=== PATIENT | female | born 2000 | race Caucasian/White ===

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

== ENCOUNTER → 2019-03-04 12:31 | Outpatient (CLI) | payer MEDICAID, SELFPAY | PROVIDERS: Visit Provider Internal Medicine Cardiovascular Disease | DX: G47.9 Sleep disorder, unspecified (principal); R00.2 Palpitations; R06.09 Other forms of dyspnea; R07.9 Chest pain, unspecified; R40.0 Somnolence | CPT/HCPCS: 95806 ==

== ENCOUNTER → 2019-04-15 14:44 | Outpatient (CLI) | payer MEDICAID, SELFPAY ==
[2019-04-15 16:41] LABS: HCG,Quantitative 1 mIU/mL
== END ==
PROVIDERS: Visit Provider Nurse Practitioner Obstetrics & Gynecology
DX: Z32.00 Encounter for pregnancy test, result unknown (principal)
CPT/HCPCS: 36415; 84702

== ENCOUNTER → 2019-04-19 17:42 | Outpatient (CLI) | payer MEDICAID, SELFPAY ==
[2019-04-24 17:19] LABS: Neisseria gonorrhoeae, NAA Negative (Negative)
== END ==
PROVIDERS: Visit Provider Nurse Practitioner Obstetrics & Gynecology
DX: Z34.90 Encounter for supervision of normal pregnancy, unspecified, unspecified trimester (principal)
CPT/HCPCS: 87491; 87591

== ENCOUNTER → 2019-06-14 15:29 | Outpatient (CLI) | payer MEDICAID, SELFPAY ==
--- NOTE | 2019-06-14 15:32 | US_ITS ---
US transvaginal HISTORY: ITS.REASON: US T/V- Pain during intercourse ORDERING PHYSICIAN: Juan Luis Castro MD PATIENT AGE: 18 years Comparison: None FINDINGS: The uterus is 7 x 3 x 4 cm with a combined endometrial thickness of 3 mm. No uterine mass is evident. The left ovary is 4 x 3 cm and contains a 1.8 x 1.4 cm cyst. The right ovary is 2.8 x 1.3 cm and contains a few small follicles. No cul-de-sac fluid is evident. IMPRESSION: Small left ovarian cyst 1.8 cm otherwise negative
== END ==
PROVIDERS: PCP Nurse Practitioner; Visit Provider Nurse Practitioner Obstetrics & Gynecology
DX: N94.10 Unspecified dyspareunia (principal)
CPT/HCPCS: 76830

== ENCOUNTER → 2019-07-11 16:48 | Outpatient (CLI) | payer MEDICAID, SELFPAY | PROVIDERS: Visit Provider Nurse Practitioner Obstetrics & Gynecology | DX: N93.9 Abnormal uterine and vaginal bleeding, unspecified (principal) | CPT/HCPCS: 87086 ==

== ENCOUNTER → 2019-10-24 16:34 | Outpatient (CLI) | payer OTHER, SELFPAY ==
[2019-10-27 21:15] LABS: Neisseria gonorrhoeae, NAA Negative (Negative)
== END ==
PROVIDERS: Visit Provider Nurse Practitioner Obstetrics & Gynecology
DX: N94.10 Unspecified dyspareunia (principal)
CPT/HCPCS: 87491; 87591

== ENCOUNTER → 2019-10-28 09:43 | Outpatient (CLI) | payer OTHER, SELFPAY ==
--- NOTE | 2019-10-28 09:49 | US_ITS ---
PROCEDURE: US TRANSVAGINAL CLINICAL INDICATION: US T/V- pelvic pain COMPARISON: TRANVAG US transvaginal from 06/14/2019 FINDINGS: The uterus is normal in size and shows homogeneous echogenicity. There is a small amount of fluid within the endometrial cavity likely representing some residual blood from prolonged uterine bleeding per patient history. The left ovary is normal in size. The dominant cyst seen on the previous exam May of this year is not seen, couple of tiny follicular cyst noted. The right ovary is normal in size with a couple small follicular cyst noted. The patient complained of some pain from the pressure of the ultrasound transducer during the exam. IMPRESSION: Small amount of fluid within the endometrial cavity, otherwise unremarkable exam Dictated by: Dr. Leonidas Peck MD 10/28/2019 10:[address] Leonidas Peck MD in [place] 10/28/2019 10:54
== END ==
PROVIDERS: PCP Nurse Practitioner; Visit Provider Nurse Practitioner Obstetrics & Gynecology
DX: R10.2 Pelvic and perineal pain (principal)
CPT/HCPCS: 76830

== ENCOUNTER → 2020-08-17 14:07 | Outpatient (CLI) | payer OTHER, SELFPAY ==
[2020-08-21 04:24] LABS: Neisseria gonorrhoeae, NAA Negative (Negative)
== END ==
PROVIDERS: Visit Provider Nurse Practitioner Obstetrics & Gynecology
DX: N93.9 Abnormal uterine and vaginal bleeding, unspecified (principal); Z72.51 High risk heterosexual behavior
CPT/HCPCS: 87491; 87591

== ENCOUNTER → 2020-08-24 10:54 | Outpatient (CLI) | payer OTHER, SELFPAY ==
--- NOTE | 2020-08-24 10:55 | US_ITS ---
PROCEDURE: US TRANSVAGINAL CLINICAL INDICATION: abnormal vaginal bleeding Abnormal vaginal bleeding, prolonged bleeding COMPARISON: US US TRANSVAGINAL from 10/28/2019 FINDINGS: UTERUS: 6cm x 4cmx 2cm with a combined endometrial thickness of 2.7mm LEFT OVARY: [id number] with a volume of 4.2ml. RIGHT OVARY: [id number] with a volume of 5ml. No pelvic mass or abnormal fluid collection. IMPRESSION: Negative pelvic ultrasound Dictated by: Ras Alcocer MD 08/24/2020 18:03 Ras Alcocer MD in [place] 08/24/2020 18:03
== END ==
PROVIDERS: PCP Nurse Practitioner; Visit Provider Nurse Practitioner Obstetrics & Gynecology
DX: N93.9 Abnormal uterine and vaginal bleeding, unspecified (principal)
CPT/HCPCS: 76830

== ENCOUNTER → 2021-05-13 18:07 | Outpatient (CLI) | payer OTHER, SELFPAY ==
[2021-05-16 18:06] LABS: Neisseria gonorrhoeae, NAA Negative (Negative)
== END ==
PROVIDERS: Visit Provider Nurse Practitioner Obstetrics & Gynecology
DX: Z72.51 High risk heterosexual behavior (principal)
CPT/HCPCS: 87491; 87591

== ENCOUNTER 2022-12-25 14:56 | Emergency (ER) | payer OTHER, SELFPAY ==
[2022-12-25 14:57] VITALS: BP 116/55; PULSE 99; RESP 18; TEMP 36.8; O2SAT 100; BMI 16.5
--- NOTE | 2022-12-25 15:21 | HMH.EDGENADL ---
Discharge Plan Disposition Patient Disposition: Home, Self-Care Prescriptions Prescriptions: No Action meloxicam 7.5 mg tablet 7.5 mg PO DAILY Qty: 30 4RF medroxyprogesterone [Depo-Provera] 150 mg/mL suspension 150 mg IM [id number] Qty: 1 3RF Referrals Follow up/Referrals: Ambrose Cantu APRN [Primary Care Provider] - See instructions Activity Restrictions/Add. 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 She apparently went to [place] emergency department and had a negative test at that time. Their pelvic exam was unremarkable and she was discharged home. She presents now and thinks that she has passed tissue in the bleeding. No fever chills pelvic pain. She is concerned that she may be having a miscarriage again Related Data Previous Rx's Medication Instructions Recorded medroxyprogesterone 150 mg/mL 150 mg IM [id number] #1 mL 12/09/21 intramuscular suspension (Depo-Provera) meloxicam 7.5 mg tablet 7.5 mg PO DAILY #30 tabs 05/13/22 Allergies Allergy/AdvReac Type Severity Reaction Status Date / Time topiramate [From Topamax] Allergy Severe stopped Verified 05/13/22 14:17 breathing guaifenesin [From Mucinex] Allergy Mild vomiting, Verified 05/13/22 14:17 and hives PFSH PFS Disclaimer: The information contained in this section may have been updated after the patient was seen, as this information can be updated by other users. Medical History (Updated 12/25/22 @ 16:46 by Shai Clark MD) Daytime somnolence Dyspnea Palpitations Restless sleeper Snoring Social History Smoking Status: Current every day smoker alcohol intake: never substance use type: denies use current occupational status: student Travel in the last 8 weeks: None ROS Obtained: Yes All systems reviewed & no additional complaints except as documented Constitutional Constitutional: Denies body ache, Denies chills and Denies weakness Eyes Eyes: Denies blurry vision ENT Ears, Nose, Mouth, and Throat: Denies dysphagia, Denies lip swelling and Denies vertigo Cardiovascular Cardiovascular: Denies dyspnea and Denies dyspnea on exertion Respiratory Respiratory: Denies shortness of breath, Denies dyspnea and Denies dyspnea on exertion Gastrointestinal Gastrointestingal: Denies diarrhea, dysphagia or vomiting Genitourinary Female Genitourinary: Denies urinary urgency Musculoskeletal Musculoskeletal: Denies arthralgias and Denies stiffness Integumentary/Breasts Skin/Breast: Denies redness and Denies rash Neurologic Neurologic: Denies confusion, Denies vertigo and Denies weakness Allergic/Immunologic Allergic/Immunologic: Denies lip swelling Physical Exam General General appearance: alert and in no apparent distress Eye Eye exam: Present PERRL and EOMI ENT ENT exam: Present normal exam and normal oropharynx Neck Neck exam: Present normal inspection Chest Chest inspection: Present symmetric chest wall rise Respiratory Respiratory exam: Present normal lung sounds bilaterally; Absent respiratory distress Cardiovascular Cardiovascular exam: Present regular rate and normal rhythm Abdominal Exam Abdominal exam: Present soft; Absent distention, tenderness, guarding, rebound, Townsend's sign or tenderness at McBurney's Point Back Exam Back exam: Present normal inspection Neurological Exam Neurological exam: Present alert and oriented X3 Psychiatric Psychiatric exa
[2022-12-25 15:54] LABS: Basophils % 0.5 % (0.1-2.0); Eosinophils # 0.1 K/mm3 (0.0-0.4); Eosinophils % 1.4 % (0.1-12.0); Hematocrit 41.7 % (37.0-47.0); Hemoglobin 13.2 g/dL (12.2-16.2); Lymphocytes # 3.1 K/mm3 (0.7-4.5); Lymphocytes % 44.6 % (10-50); Mean Corpuscular HGB Conc 31.7 g/dL (31.8-35.4); Mean Corpuscular Hemoglobin 29.3 pg (27.0-31.2); Mean Corpuscular Volume 92.6 fl (81-99); Mean Platelet Volume 7.7 fl (7.4-10.4); Monocytes # 0.3 K/mm3 (0.1-1.0); Monocytes % 4.2 % (1.7-9.3); Neutrophils # 3.4 K/mm3 (1.8-7.8); Neutrophils % 49.3 % (37.0-80.0); Platelet Count 290 K/mm3 (142-424); Red Cell Distribution Width 13.3 % (11.5-17.5)
[2022-12-25 16:00] VITALS: BP 106/48; PULSE 88; RESP 20; O2SAT 100
[2022-12-25 16:03] LABS: Alanine Aminotransferase 15 U/L (12-78); Albumin Level 4.4 g/dl (3.5-5.0); Albumin/Globulin Ratio 1.8 (1.1-1.8); Alkaline Phosphatase 61 U/L (38-126); Anion Gap 10.8 mEq/L (5-15); Aspartate Amino Transferase 22 U/L (14-36); Bilirubin,Total 0.6 mg/dl (0.2-1.3); Blood Urea Nitrogen 5 mg/dl (7-17); Calcium 8.8 mg/dl (8.4-10.2); Carbon Dioxide 24 mmol/L (22.0-30.0); Chloride 109 mmol/L (98-107); Creatinine Clearance Estimated 123 mL/min (50-200); Estimated Glomerular Filt Rate 124 ml/min (>60); GFR (African American) 150 ML/MIN (>60); Globulin 2.5 g/dL (1.3-3.2); Glucose 90 mg/dl (74-100); Potassium 3.8 mmoL/L (3.5-5.1); Sodium 140 mmol/L (136-145); Total Protein,Serum 6.9 g/dl (6.3-8.2)
[2022-12-25 16:31] LABS: HCG,Quantitative < 2 mIU/ml (0-5.42)
[2022-12-25 16:50] VITALS: BP 118/70; PULSE 75; RESP 17; TEMP 36.7; O2SAT 99
== END 2022-12-25 16:55 | disposition home or self-care (01) ==
PROVIDERS: Emergency Provider Emergency Medicine; PCP Nurse Practitioner
DX: N93.9 Abnormal uterine and vaginal bleeding, unspecified (principal); F17.210 Nicotine dependence, cigarettes, uncomplicated
CPT/HCPCS: 36415; 80053; 84702; 85025; 86900; 86901; 99284

== ENCOUNTER → 2022-12-31 11:01 | Outpatient (CLI) | payer OTHER, SELFPAY ==
--- NOTE | 2022-12-31 11:02 | US_ITS ---
FINAL REPORT CLINICAL HISTORY: pelvic pain COMPARISON: August 24, 2020 FINDINGS: Transvaginal sonographic images of the pelvis were obtained. The uterus measures 7.7 x 4.0 x 2.7 cm. The endometrium measures 4 mm, which is within normal limits. No uterine mass is identified. The right ovary measures 3.9 cm in length and left ovary measures 3.1 cm in length. Normal blood flow seen to the ovaries. There are small cysts or follicles in both ovaries. There is no evidence of free fluid. IMPRESSION: Small cysts or follicles in both ovaries. Reviewed, Interpreted and Dictated by Shashank Sen MD Transcribed by Jie Batres Authenticated and [facility]
== END ==
PROVIDERS: PCP Nurse Practitioner; Visit Provider Obstetrics & Gynecology
DX: N93.9 Abnormal uterine and vaginal bleeding, unspecified (principal); R10.2 Pelvic and perineal pain
CPT/HCPCS: 76830

== ENCOUNTER 2024-07-29 11:37 | Outpatient (CLI) | payer OTHER, SELFPAY ==
[2024-07-29 13:41] LABS: HCG,Quantitative 62 mIU/ml (0-5.42)
[2024-07-30 08:18] LABS: Progesterone 7.7 ng/mL (.)
== END 2024-07-29 23:59 | disposition home or self-care (01) ==
LOC: LAB 11:38
PROVIDERS: PCP Nurse Practitioner; Visit Provider Obstetrics & Gynecology
DX: N92.6 Irregular menstruation, unspecified (principal)
CPT/HCPCS: 36415; 84144; 84702

== ENCOUNTER 2024-08-02 16:25 | Outpatient (CLI) | payer OTHER, SELFPAY ==
[2024-08-02 17:53] LABS: HCG,Quantitative 395 mIU/ml (0-5.42)
== END 2024-08-02 23:59 | disposition home or self-care (01) ==
LOC: LAB 16:25
PROVIDERS: PCP Nurse Practitioner; Visit Provider Obstetrics & Gynecology
DX: Z34.90 Encounter for supervision of normal pregnancy, unspecified, unspecified trimester (principal)
CPT/HCPCS: 36415; 84702

== ENCOUNTER 2024-08-17 14:26 | Outpatient (CLI) | payer OTHER, SELFPAY ==
--- NOTE | 2024-08-17 14:26 | US_ITS ---
PROCEDURE: US OB <= 14 WEEKS FETUS CLINICAL INDICATION: viablity and dating, possible sab COMPARISON: US US TRANSVAGINAL from 12/31/2022 FINDINGS: Transvaginal sonographic images of the pelvis were obtained. Her last menstrual period is unknown. An intrauterine gestational sac is present with a pole with a crown-rump length of 0.42cm This correlates to a gestational age of 6weeks 1day. MELVIN 04/11/2025 heart tones are present with an FHR of 124bpm. Yolk sac is noted. The yolk sac measures 5.1 mm. There is an inferior area of subchorionic hemorrhage. This measures 3.2 cm x 2.7 cm x 0.6 cm. The right ovary is seen and appears normal. There are multiple small peripheral follicles The left ovary is seen and appears normal. There appears to be a corpus luteum in the left ovary measuring 1.5 cm. There is no fluid in the cul-de-sac. IMPRESSION: 1. Viable fetus within the uterine cavity. 2. Fetus measures 6 weeks 1 day and MELVIN will be 04/11/2025. 3. There is a moderate sized subchorionic hemorrhage. 4. Both ovaries are seen and appear normal. The left ovary has a corpus luteum. 5. No fluid in the cul-de-sac. Dictated by: Juan Luis Castro MD 08/18/2024 08:38 Juan Luis Castro MD in [place] 08/18/2024 08:38
== END 2024-08-17 23:59 | disposition home or self-care (01) ==
LOC: RAD 14:26
PROVIDERS: PCP Obstetrics & Gynecology; Visit Provider Obstetrics & Gynecology
DX: Z34.91 Encounter for supervision of normal pregnancy, unspecified, first trimester (principal); Z3A.01 Less than 8 weeks gestation of pregnancy
CPT/HCPCS: 76801

== ENCOUNTER 2024-08-17 15:06 | Outpatient (CLI) | payer OTHER, SELFPAY ==
[2024-08-17 16:55] LABS: HCG,Quantitative 32999 mIU/ml (0-5.42)
== END 2024-08-17 23:59 | disposition home or self-care (01) ==
LOC: LAB 15:07
PROVIDERS: PCP Nurse Practitioner; Visit Provider Obstetrics & Gynecology
DX: O03.9 Complete or unspecified spontaneous abortion without complication (principal)
CPT/HCPCS: 36415; 84702

== ENCOUNTER 2024-08-18 16:59 | Outpatient (CLI) | payer OTHER, SELFPAY | END 2024-08-18 23:59 | disposition home or self-care (01) | LOC: LAB.DROPOF 16:59 | PROVIDERS: PCP Obstetrics & Gynecology; Visit Provider Obstetrics & Gynecology | DX: Z34.81 Encounter for supervision of other normal pregnancy, first trimester (principal) | CPT/HCPCS: 87086 ==

== ENCOUNTER 2024-09-01 13:00 | Outpatient (CLI) | payer OTHER, SELFPAY ==
[2024-09-01 14:02] LABS: Basophils % 0.4 % (0.1-2.0); Eosinophils # 0.1 K/mm3 (0.0-0.4); Eosinophils % 1.7 % (0.1-12.0); Hematocrit 40.5 % (37.0-47.0); Hemoglobin 13.6 g/dL (12.2-16.2); Lymphocytes # 2.3 K/mm3 (0.7-4.5); Lymphocytes % 27.7 % (10-50); Mean Corpuscular HGB Conc 33.7 g/dL (31.8-35.4); Mean Corpuscular Hemoglobin 31.8 pg (27.0-31.2); Mean Corpuscular Volume 94.5 fl (81-99); Mean Platelet Volume 8.4 fl (7.4-10.4); Monocytes # 0.5 K/mm3 (0.1-1.0); Monocytes % 6.5 % (1.7-9.3); Neutrophils # 5.3 K/mm3 (1.8-7.8); Neutrophils % 63.7 % (37.0-80.0); Platelet Count 228 K/mm3 (142-424); Red Blood Count 4.28 M/mm3 (4.20-5.40); White Blood Count 8.3 K/mm3 (4.8-10.8)
[2024-09-02 09:22] LABS: HCV Ab Non Reactive (Non Reactive); Hepatitis B Surface Antigen Negative (Negative)
[2024-09-02 10:24] LABS: HIV Screen 4th Generation wRfx Non Reactive (Non Reactive); Rubella Antibodies, IgG 1.44 index (Immune >0.99)
[2024-09-02 11:19] LABS: Rapid Plasma Reagin Ab Titer Non Reactive titer (NonRea<1:1)
== END 2024-09-01 23:59 | disposition home or self-care (01) ==
LOC: LAB 13:01
PROVIDERS: PCP Nurse Practitioner; Visit Provider Obstetrics & Gynecology
DX: Z34.81 Encounter for supervision of other normal pregnancy, first trimester (principal); Z3A.01 Less than 8 weeks gestation of pregnancy
CPT/HCPCS: 36415; 85025; 86593; 86703; 86762; 86803; 86850; 87340; 87389; G0432

== ENCOUNTER 2024-11-29 09:44 | Outpatient (CLI) | payer OTHER, SELFPAY ==
--- NOTE | 2024-11-29 09:44 | US_ITS ---
PROCEDURE: US OB /MATERNAL DETAIL CLINICAL INDICATION: 20 week Anatomy Scan-US OB Complete COMPARISON: US US OB <= 14 WEEKS FETUS from 08/17/2024 FINDINGS: Transabdominal sonographic images of the pelvis were obtained. From her established due date she is 21 weeks 0 days. Single viable intrauterine gestation. Breech position. Placenta: Lateralplacenta grade 1. Placental Reyes is seen. There is an average amount of fluid. The cervix appears satisfactory. Closed and measuring 2.83 cm in length measured transvaginally. Complete survey performed and was unremarkable on the submitted images as in PACS. No discrete anomalies identified on survey imaging by technologist. Active fetus. Three-vessel cord with satisfactory umbilical cord insertion. 4- chamber heart noted. Situs, aortic arch, LVOT, RVOT, three-vessel view appear normal. Survey of brain & ventricles Unremarkable. Cerebellum, thalamus, choroid plexus, cisterna magna appear normal. Face and neck survey unremarkable. Profile, nasion, lips and nose appeared normal. Diaphragm and chest views unremarkable. Abdomen: Both kidneys noted and unremarkable. Stomach and bladder noted and satisfactory. Spine: Survey of the spine satisfactory with no anomalies identified nor imaged. Cervical, thoracic, lower spine appear normal. Lower spine was not well visualized due to position. Both arms and legs noted. Amniotic Fluid: Adequate. MVP 5.46 cm Measurements: Average ultrasound age 21weeks 4days. Estimated due date by ultrasound age 0504/07/2025. Estimated weight 452g BPD = 21weeks 1day HC = 21weeks 1day AC = 22weeks 5days FL = 21weeks 1day Growth Percentile= 85 Heart Rate = 147bpm Cerebellum = 21weeks 6days Humerus = 21weeks 6days HC/AC is 1.06 FL/BPD is 0.7 FL/AC is 0.2 IMPRESSION: 1. Viable fetus in the breech presentation with a lateral placenta grade 1. Placental Reyes is seen. 2. The fluid is within normal limits MVP 5.46 cm. 3. Anatomical scan appears normal. Lower spine was not well visualized due to position. Suggest repeat scan in 2-3 weeks. 4. biometry is consistent with the dates. Dictated by: Juan Luis Castro MD 11/30/2024 08:43 Juan Luis Castro MD in [place] 11/30/2024 08:43
== END 2024-11-29 23:59 | disposition home or self-care (01) ==
LOC: RAD 09:44
PROVIDERS: PCP Nurse Practitioner; Visit Provider Obstetrics & Gynecology
DX: O09.292 Supervision of pregnancy with other poor reproductive or obstetric history, second trimester (principal); Z36.3 Encounter for antenatal screening for malformations; Z3A.20 20 weeks gestation of pregnancy
CPT/HCPCS: 76811

== ENCOUNTER 2024-12-27 09:09 | Outpatient (CLI) | payer OTHER, SELFPAY ==
--- NOTE | 2024-12-27 09:10 | US_ITS ---
PROCEDURE: US OB >= 14 WEEKS FETUS CLINICAL INDICATION: repeat anatomy, incomplete spinal views COMPARISON: US US OB <= 14 WEEKS FETUS from 08/17/2024 US US OB /MATERNAL DETAIL from 11/29/2024 FINDINGS: Transabdominal sonographic images of the pelvis were obtained. The following parameters are obtained: From her established due date she is 25weeks 0 days Viable fetus in the cephalic presentation with a right lateral placenta grade 1. The cervix measures 3.5 cm heart rate: 158bpm bpm. Amniotic fluid: MVP 3.87 cm No obvious anomalies evident. profile seen, stomach, bladder, kidneys, three-vessel cord, four chamber heart appear normal. spine: Cervical, thoracic and lower spine appear normal. IMPRESSION: 1. Viable fetus in the cephalic presentation with a right lateral placenta grade 1. 2. The fluid is within normal limits with an MVP 3.87 cm. 3. Limited anatomical scan appears normal. 4. The spine was visualized and appears normal today. Dictated by: Juan Luis Castro MD 12/27/2024 15:00 Juan Luis Castro MD in [place] 12/27/2024 15:00
== END 2024-12-27 23:59 | disposition home or self-care (01) ==
LOC: RAD 09:10
PROVIDERS: PCP Obstetrics & Gynecology; Visit Provider Obstetrics & Gynecology
DX: Z34.92 Encounter for supervision of normal pregnancy, unspecified, second trimester (principal); Z3A.25 25 weeks gestation of pregnancy
CPT/HCPCS: 76805

== ENCOUNTER 2025-01-04 22:28 | Outpatient (CLI) | payer OTHER, SELFPAY ==
[2025-01-04 22:33] VITALS: BMI 22.0
[2025-01-04 22:47] VITALS: BP 147/72; PULSE 91; RESP 18; TEMP 37.1; O2SAT 98; BMI 22.0
[2025-01-04 22:53] LABS: Microscopic, Urine URINE MICROSCOPIC (MICROSCOPIC)
[2025-01-04 22:56] LABS: Appearance,Urine CLEAR (Clear); Bilirubin,Urine Negative (Negative); Blood, Urine Negative (Negative); Color,Urine YELLOW (Yellow); Glucose,Urine (UA) Negative (Negative); Ketones,Urine Negative (Negative); Leukocyte Esterase,Urine Negative (Negative); Nitrate,Urine Negative (Negative); Protein,Urine Negative (Negative); Specific Gravity, Urine 1.015 (1.005-1.030); Urobilinogen,Urine 0.2 EU/dl (0.2)
[2025-01-04 23:04] LABS: Fetal Membrane Rupture (Rapid) Negative (Negative)
[2025-01-04 23:09] LABS: Amphetamine/Metha Screen,Urine Negative ng/ml (<1000); Barbiturates Screen,Urine Negative ng/ml (<200)
[2025-01-04 23:10] LABS: Benzodiazepines Screen,Urine Negative ng/ml (<200); Cannabinoid Screen,Urine Negative ng/ml (<50)
[2025-01-04 23:11] LABS: Cocaine Screen,Urine Negative ng/ml (<300)
[2025-01-04 23:12] LABS: Methadone Screen,Urine Negative ng/ml (<300); Opiate Screen,Urine Negative ng/ml (<300)
[2025-01-04 23:13] LABS: Phencyclidine Screen,Urine Negative ng/ml (<25)
[2025-01-04 23:17] LABS: Bacteria,Urine 1+ /lpf; WBC,Urine Occasional #/hpf (0-3)
== END 2025-01-04 23:15 | disposition home or self-care (01) ==
LOC: OBOUT 22:30 → OB 22:31
PROVIDERS: Visit Provider Nurse Practitioner Obstetrics & Gynecology
DX: O42.912 Preterm premature rupture of membranes, unspecified as to length of time between rupture and onset of labor, second trimester (principal); Z3A.26 26 weeks gestation of pregnancy
CPT/HCPCS: 80307; 81001; 84112; G0463

== ENCOUNTER 2025-01-08 18:25 | Outpatient (CLI) | payer OTHER, SELFPAY ==
[2025-01-08 18:37] VITALS: BP 151/85; PULSE 99; RESP 18; TEMP 36.6; O2SAT 100; BMI 22.0
[2025-01-08 18:48] VITALS: BMI 22.0
[2025-01-08 18:52] LABS: Microscopic, Urine URINE MICROSCOPIC (MICROSCOPIC)
[2025-01-08 19:02] LABS: Appearance,Urine CLEAR (Clear); Bilirubin,Urine Negative (Negative); Blood, Urine Negative (Negative); Color,Urine YELLOW (Yellow); Glucose,Urine (UA) Negative (Negative); Ketones,Urine Negative (Negative); Leukocyte Esterase,Urine Negative (Negative); Nitrate,Urine Negative (Negative); Protein,Urine Negative (Negative); Specific Gravity, Urine 1.015 (1.005-1.030); Urobilinogen,Urine 0.2 EU/dl (0.2)
[2025-01-08 19:14] LABS: Barbiturates Screen,Urine Negative ng/ml (<200); Benzodiazepines Screen,Urine Negative ng/ml (<200)
[2025-01-08 19:15] LABS: Amphetamine/Metha Screen,Urine Negative ng/ml (<1000)
[2025-01-08 19:16] LABS: Cannabinoid Screen,Urine Negative ng/ml (<50)
[2025-01-08 19:17] LABS: Cocaine Screen,Urine Negative ng/ml (<300); Methadone Screen,Urine Negative ng/ml (<300)
[2025-01-08 19:18] LABS: Opiate Screen,Urine Negative ng/ml (<300); Phencyclidine Screen,Urine Negative ng/ml (<25)
[2025-01-08 19:44] LABS: Creatinine,Urine Random 33 mg/dL (Not Estab.)
[2025-01-08] MEDS: LACTATED RINGERS 1000ML 1,000 ML 999 ML IV (19:45)
[2025-01-08 20:01] LABS: Basophils # 0.1 K/mm3 (0-0.2); Basophils % 0.5 % (0.1-2.0); Eosinophils # 0.2 K/mm3 (0.0-0.4); Hemoglobin 12.1 g/dL (12.2-16.2); Lymphocytes # 3.2 K/mm3 (0.7-4.5); Lymphocytes % 17.3 % (10-50); Mean Corpuscular HGB Conc 33.6 g/dL (31.8-35.4); Mean Corpuscular Hemoglobin 30.4 pg (27.0-31.2); Mean Corpuscular Volume 90.5 fl (81-99); Mean Platelet Volume 9.3 fl (7.4-10.4); Monocytes # 1.2 K/mm3 (0.1-1.0); Monocytes % 6.6 % (1.7-9.3); Neutrophils # 13.2 K/mm3 (1.8-7.8); Platelet Count 312 K/mm3 (142-424); Red Blood Count 3.98 M/mm3 (4.20-5.40); Red Cell Distribution Width 12.8 % (11.5-17.5); White Blood Count 18.3 K/mm3 (4.8-10.8)
[2025-01-08 20:02] LABS: MANUAL DIFFERENTIAL MANUAL DIFFERENTIAL (MANUAL DIFF)
[2025-01-08 20:06] LABS: Chloride 106 mmol/L (98-107)
[2025-01-08 20:07] LABS: Sodium 136 mmol/L (136-145)
[2025-01-08 20:09] LABS: Alanine Aminotransferase 17 U/L (12-78); Aspartate Amino Transferase 21 U/L (14-36); Blood Urea Nitrogen 7 mg/dl (7-17); Creatinine Clearance Estimated 324 mL/min (50-200); Estimated Glomerular Filt Rate 271 ml/min (>60); GFR (African American) 328 ML/MIN (>60)
[2025-01-08 20:10] LABS: Calcium 8.6 mg/dl (8.4-10.2); Carbon Dioxide 23 mmol/L (22.0-30.0); Glucose 86 mg/dl (74-100)
[2025-01-08 20:12] LABS: Activated Partial Thrombo Time 22.3 seconds (22.5-28.5); Fibrinogen 359 mg/dL (208.1-352.0); INR 0.86 (0.9-1.1); Prothrombin Time 9.6 seconds (9.2-12.1)
[2025-01-08 20:14] LABS: Uric Acid 3.6 mg/dl (2.5-6.2)
[2025-01-08 21:02] LABS: Eosinophils % 1 % (0-3); Lymphocytes % 17 % (10-50); Monocytes % 3 % (2-9); Neutrophils % 79 % (42-76); Total Cells Counted 100
[2025-01-08 21:03] LABS: Platelet Estimate Normal; RBC Morphology Normal
== END 2025-01-08 20:15 | disposition home or self-care (01) ==
LOC: OBOUT 18:27 → OB 18:28
PROVIDERS: Visit Provider Obstetrics & Gynecology
DX: O10.913 Unspecified pre-existing hypertension complicating pregnancy, third trimester (principal); Z3A.26 26 weeks gestation of pregnancy
CPT/HCPCS: 80048; 80307; 81001; 82570; 84450; 84460; 84550; 85007; 85025; 85384; 85610; 85730; G0463; J7120

== ENCOUNTER 2025-01-09 15:23 | Outpatient (CLI) | payer OTHER, SELFPAY ==
[2025-01-09 15:31] VITALS: BMI 23.4
--- NOTE | 2025-01-09 15:31 | US_ITS ---
PROCEDURE: US OB TRANSVAGINAL CLINICAL INDICATION: CRAMPING COMPARISON: US US OB <= 14 WEEKS FETUS from 08/17/2024 US US OB /MATERNAL DETAIL from 11/29/2024 US US OB >= 14 WEEKS FETUS from 12/27/2024 FINDINGS: Transabdominal sonographic images of the uterus were obtained. From her established due date she is 27weeks 0 days. The following parameters are obtained: Viable Fetus in the cephalic presentation with a right lateral placenta grade 2. The cervix measures 1.7 cm-2.3 cm transvaginally. There is a very small amount of funneling at the internal os. Measurements: heart Rate = 144bpm The amniotic fluid subjectively appears normal. No obvious anomalies evident.Kidneys, bladder, stomach, four-chamber heart, three-vessel cord appear normal. IMPRESSION: 1. Viable fetus in the cephalic presentation with a right lateral placenta grade 2. 2. Subjectively the fluid appears normal. 3. Cervix is measured transvaginally and appears foreshortened measuring 1.7 cm-2.3 cm . There is a small amount of internal os funneling. 4. Limited anatomical scan appears normal. Dictated by: Juan Luis Castro MD 01/09/2025 16:41 Juan Luis Castro MD in [place] 01/09/2025 16:41
[2025-01-09] MEDS: hydrOXYzine pamoate 25MG CAPSULE 25 MG PO (15:42)
[2025-01-09] MEDS: LACTATED RINGERS 1000ML 1,000 ML 999 ML IV (15:43)
[2025-01-09 16:01] VITALS: BP 113/80; PULSE 99; RESP 20; TEMP 36.7; O2SAT 98; BMI 23.4
[2025-01-09 16:22] VITALS: BP 113/80; PULSE 99; RESP 20; TEMP 36.7; O2SAT 98
[2025-01-09 16:29] LABS: Fetal Fibronectin (Rapid) Negative (Negative)
[2025-01-09] MEDS: BETAMETHASONE ACET/PHOS 6MG/ML 5ML MDV 12 MG IM (17:00)
[2025-01-09 18:30] LABS: Creatinine,Urine Random 43 mg/dL (Not Estab.)
== END 2025-01-09 17:08 | disposition home or self-care (01) ==
LOC: OBOUT 15:24 → OB 15:24
PROVIDERS: Visit Provider Obstetrics & Gynecology
DX: O16.2 Unspecified maternal hypertension, second trimester (principal); Z3A.27 27 weeks gestation of pregnancy; E86.9 Volume depletion, unspecified
CPT/HCPCS: 76817; 82570; 82731; 84156; G0463; J0702; J7120

== ENCOUNTER 2025-01-10 16:56 | Outpatient (CLI) | payer OTHER, SELFPAY ==
[2025-01-10 17:34] VITALS: BMI 23.4
[2025-01-10] MEDS: BETAMETHASONE ACET/PHOS 6MG/ML 5ML MDV 12 MG IM (17:49)
== END 2025-01-10 18:08 | disposition home or self-care (01) ==
LOC: OBOUT 17:00 → OB 17:07
PROVIDERS: Visit Provider Obstetrics & Gynecology
DX: O60.02 Preterm labor without delivery, second trimester (principal); Z3A.27 27 weeks gestation of pregnancy
CPT/HCPCS: G0463; J0702

== ENCOUNTER 2025-01-11 21:49 | Observation (INO) | payer OTHER, SELFPAY ==
[2025-01-11 18:40] VITALS: BMI 22.1
[2025-01-11 18:47] LABS: Microscopic, Urine URINE MICROSCOPIC (MICROSCOPIC)
[2025-01-11 18:56] LABS: Appearance,Urine CLEAR (Clear); Bilirubin,Urine Negative (Negative); Blood, Urine Negative (Negative); Color,Urine YELLOW (Yellow); Glucose,Urine (UA) Negative (Negative); Ketones,Urine Negative (Negative); Leukocyte Esterase,Urine Negative (Negative); Nitrate,Urine Negative (Negative); Protein,Urine Negative (Negative); Urobilinogen,Urine 0.2 EU/dl (0.2)
[2025-01-11 19:12] LABS: Barbiturates Screen,Urine Negative ng/ml (<200); Benzodiazepines Screen,Urine Negative ng/ml (<200)
[2025-01-11 19:13] LABS: Amphetamine/Metha Screen,Urine Negative ng/ml (<1000)
[2025-01-11 19:14] LABS: Cannabinoid Screen,Urine Negative ng/ml (<50); Cocaine Screen,Urine Negative ng/ml (<300)
[2025-01-11 19:15] LABS: Methadone Screen,Urine Negative ng/ml (<300)
[2025-01-11 19:16] LABS: Opiate Screen,Urine Negative ng/ml (<300)
[2025-01-11 19:17] LABS: Phencyclidine Screen,Urine Negative ng/ml (<25)
[2025-01-11] MEDS: LACTATED RINGERS 1000ML 1,000 ML 999 ML IV (19:26)
[2025-01-11] MEDS: NIFEdipine 10MG CAPSULE 10 MG PO (19:26)
[2025-01-11 19:30] VITALS: BP 127/71; PULSE 99; RESP 17; TEMP 36.8; O2SAT 100; BMI 22.1
[2025-01-11 19:35] LABS: Bacteria,Urine 3+ /lpf; Squamous Epithelial Cell,Urine 20-50 #/hpf (0-5)
--- NOTE | 2025-01-11 19:50 | US_ITS ---
PROCEDURE INFORMATION: Exam: US , Transvaginal Exam date and time: 01/11/2025 7:59 PM Age: 24 years old Clinical indication: Lmp or gestational age (in weeks): 27w 2d; Other: Contractions; ; Additional info: Contractions` LABS AND CLINICAL REPORTS: Gestational age (Established): 27 w 2 d Estimated due date (Established): 04/10/2025 TECHNIQUE: Imaging protocol: Real-time transvaginal obstetrical ultrasound of the maternal pelvis with image documentation. Transvaginal imaging was used for better evaluation of the fetus, adnexa, and/or cervix. COMPARISON: US OB TRANSVAGINAL 01/09/2025 3:38 PM FINDINGS: Gestation: Not evaluated heart rate: 163 bpm MATERNAL: Cervix: Cervical length measures 1.61 cm. IMPRESSION: Cervical length 1.61 cm. Previously this measured 2.31 cm.
[2025-01-11] MEDS: NICOTINE 21MG/24HR PATCH 21 MG TD (22:02)
[2025-01-11] MEDS: SODIUM CHLORIDE NASAL SPRAY 44ML NS (22:15)
[2025-01-12] MEDS: NIFEdipine 10MG CAPSULE 10 MG PO ×2 (01:03→06:54)
[2025-01-12 08:46] VITALS: BP 131/68; PULSE 95; RESP 18; TEMP 36.4; O2SAT 99
--- NOTE | 2025-01-12 09:28 | EXP.HPDC ---
General Admission date:: 01/11/25 Discharge date: 01/12/25 *Admission Date: 01/11/25 *Chief complaint: labor, short cervix. *History of present illness: She is a 24-year-old 2 para 0 aborta 1 at 27 weeks gestational age. She has been followed over the last few weeks with labor and has received 2 doses of steroids. She came in yesterday evening with irregular contractions. Ultrasound showed that her cervix was 1.6 cm in length. The previously been 1.8 cm in length. Head was down. She received IV fluids as well as oral nifedipine. This seemed to settle her contractions. She is just being observed overnight and the contractions have now settled. We will plan to send her home today. [facility] Disclaimer: The information contained in this section may have been updated after the patient was seen, as this information can be updated by other users. Medical History Diarrhea Anxiety during History of miscarriage, currently Subchorionic hemorrhage in first trimester Vaginal bleeding affecting early Acute pelvic pain, female Pelvic pain Pain with bowel movements Dysmenorrhea Endometriosis Daytime somnolence Restless sleeper Snoring Dyspnea Palpitations Surgical History Hx of wisdom tooth extraction Hx of tonsillectomy Hx of heart surgery Family History Coronary artery disease Hypertension Social History Smoking Status: Current every day smoker alcohol intake: never substance use type: denies use current occupational status: employed Travel in the last 8 weeks: None Have you lived/traveled outside US in past 30 days?: No Contact w/someone who lives/traveled outside US past 30 days?: No Exposure to someone with infectious disease in past 14 days?: No Do you have a fever (greater than 100.4 F or 38 C)?: No Have you tested positive for COVID-19: No Exposed to someone with COVID-19 in past 14 days?: No Do you have a sore throat?: No Do you have a cough?: No Do you have any weakness?: No Do you have any diarrhea?: No Are you experiencing any unusual bleeding?: No Do you have any muscle aches/pain?: No Do you have any abdominal pain?: No Are you experiencing loss of taste or smell?: No Other Medical History Have you received the Flu Vaccine for this season: No Have you received the Pneumonia Vaccine: No Review of Systems Review of Systems Review of systems:: pertinent systems reviewed and negative unless documented below Exam Data for Last 24 hours Vital signs and Labs for Last 24 Hours: Temp Pulse Resp BP Pulse Ox O2 Del Method 97.6 F 95 H 18 131/68 99 Room Air 01/12/25 08:46 01/12/25 08:46 01/12/25 08:46 01/12/25 08:46 01/12/25 08:46 01/12/25 08:46 Laboratory Results - last 24 hr 01/11/25 18:18: Urine Color Yellow, Urine Appearance Clear, Urine pH 7.0, Ur Specific Dexter 1.010, Urine Protein Negative, Urine Glucose (UA) Negative, Urine Ketones Negative, Urine Blood Negative, Urine Nitrate Negative, Urine Bilirubin Negative, Urine Urobilinogen 0.2, Ur Leukocyte Esterase Negative, Urine RBC 3-5, Urine WBC 10-20, Ur Squamous Epith Cells 20-50, Urine Bacteria 3+, Urine Opiates Screen Negative, Urine Methadone Screen Negative, Ur Barbituates Screen Negative, Ur Phencyclidine Scrn Negative, Ur Amphetamines Screen Negative, U Benzodiazepines Scrn Negative, Urine Cocaine Screen Negative, U Marijuana (THC) Screen Negative I & O for Last 24 hours: Intake & Output 01/09/25 01/10/25 01/11/25 01/12/25 11:59 11:59 11:59 11:59 Weight 159 lb Constitutional Constitutional: no acute distress *Routine HEENT Exam Head: Present normocephalic Eye: Present EOMI and PERRL ENT: Present mucous membranes moist *Routine Neck Exam Neck: Present supple; Absent lymphadenopathy *Routine Respiratory Exam Respiratory: Present CTA bilaterally *Routine Cardiovascular Exam Cardiovascular: Present RRR *Routine Abdominal Exam Abdominal: Present soft and normoactive bowel sounds; Absent tenderness *Routine Rectal Exam Rectal:: deferred *Routine Genitalia Exam Genitalia:: deferred *Routine Extremities Exam Extremities: Absent cyanosis, clubbing or edema *Routine Skin Exam Skin: Present warm; Absent rash *Routine Neurological Exam Neurological: Present alert and oriented X3 Meds Home Medications and Allergies Home Medications ?Medication ?Instructions ?Recorded ?Confirmed ?Type vits no.126-ferrous fum 1 tab PO DAILY 10/20/24 01/09/25 History 28 mg iron-folic acid 800 mcg tablet (Classic ) nifedipine 10 mg capsule 10 mg PO QID #120 caps 01/12/25 Rx New Prescriptions to Start Prescriptions: nifedipine Juan Luis Castro Allergies Allergy/AdvReac Type Severity Reaction Status Date / Time clindamycin Allergy Severe Hives Verified 01/09/25 14:35 topiramate (From Topamax) Allergy Severe stopped Verified 01/09/25 14:35 breathing docusate (From Colace) Allergy Intermediate Vomiting Verified 01/09/25 14:35 guaifenesin (From Mucinex) Allergy Mild vomiting, Verified 01/09/25 14:35 and hives Hospital Course Hospital Course Hospital Course: She was observed overnight and received IV fluids. She received oral nifedipine. This seemed to settle her contractions. Ultrasound showed that the fetus was in the cephalic presentation and the cervix was still short measuring 1.6 cm. Since she has done well overnight and she is no longer kelli we will send her home on bedrest. She was given a prescription for nifedipine to take it twice daily and she can take it up to 4 times daily as needed for any contractions. She was instructed to return if she has any further episodes of contractions. Her condition on discharge is stable and improved. Results Data Completed and Pending Labs on day of discharge: Labs from last 24 hours 01/11/25 18:18 Urine Color Yellow Urine Appearance Clear Urine pH 7.0 Ur Specific Dexter 1.010 Urine Protein Negative Urine Glucose (UA) Negative Urine Ketones Negative Urine Blood Negative Urine Nitrate Negative Urine Bilirubin Negative Urine Urobilinogen 0.2 Ur Leukocyte Esterase Negative Urine RBC 3-5 Urine WBC 10-20 Ur Squamous Epith Cells 20-50 Urine Bacteria 3+ Urine Opiates Screen Negative Urine Methadone Screen Negative Ur Barbituates Screen Negative Ur Phencyclidine Scrn Negative Ur Amphetamines Screen Negative U Benzodiazepines Scrn Negative Urine Cocaine Screen Negative U Marijuana (THC) Screen Negative DS: Diagnosis Discharge Diagnosis (1) labor in second trimester: Status: Acute Code(s): O60.02 - labor without delivery, second trimester Qualifiers: labor delivery status: without delivery Qualified Code(s): O60.02 - labor without delivery, second trimester (2) Short cervix affecting : Status: Acute Code(s): O26.879 - Cervical shortening, unspecified trimester Discharge Plan Disposition Patient Disposition: Home, Self-Care Discharge Order Discharge Orders: Discharge Order (Routine); Ordered 01/12/25 Ordered By: Juan Luis Castro Follow up Plan Prescriptions/Medication Reconciliation: New nifedipine 10 mg capsule 10 mg PO QID Qty: 120 2RF Continued Classic 28 mg iron- 800 mcg tablet 1 tab PO DAILY Problem Reconciliation Problems Reviewed?: Yes Patient Discharge Instructions ACTIVITY: Limited activity and Bed rest DIET: continue same diet Patient Instructions: [facility] Labor Print Language: Tongan Providers Primary Care Provider: Ramakrishna Robertson Admit Provider: Dayami Smith Attending Provider: Dayami Smith
== END 2025-01-12 10:34 | disposition home or self-care (01) ==
LOC: OBOUT 21:50 → OB 21:52
PROVIDERS: Admitting Provider Obstetrics & Gynecology; PCP Family Medicine; Visit Provider Obstetrics & Gynecology
DX: O60.02 Preterm labor without delivery, second trimester (principal); O26.872 Cervical shortening, second trimester; F17.210 Nicotine dependence, cigarettes, uncomplicated
CPT/HCPCS: 59025; 76817; 80307; 81001; 87086; G0378; J7120

== ENCOUNTER 2025-01-17 11:58 | Outpatient (CLI) | payer OTHER, SELFPAY ==
[2025-01-17 13:22] LABS: Basophils # 0.1 K/mm3 (0-0.2); Basophils % 0.6 % (0.1-2.0); Eosinophils # 0.2 K/mm3 (0.0-0.4); Hematocrit 35.8 % (37.0-47.0); Hemoglobin 12.1 g/dL (12.2-16.2); Lymphocytes # 2.2 K/mm3 (0.7-4.5); Lymphocytes % 13.8 % (10-50); Mean Corpuscular HGB Conc 33.8 g/dL (31.8-35.4); Mean Corpuscular Hemoglobin 30.7 pg (27.0-31.2); Mean Corpuscular Volume 90.9 fl (81-99); Mean Platelet Volume 9.1 fl (7.4-10.4); Monocytes # 0.9 K/mm3 (0.1-1.0); Monocytes % 5.3 % (1.7-9.3); Neutrophils # 12.2 K/mm3 (1.8-7.8); Neutrophils % 75.9 % (37.0-80.0); Platelet Count 325 K/mm3 (142-424); Red Blood Count 3.94 M/mm3 (4.20-5.40); White Blood Count 16.1 K/mm3 (4.8-10.8)
[2025-01-17 13:23] LABS: MANUAL DIFFERENTIAL MANUAL DIFFERENTIAL (MANUAL DIFF)
[2025-01-17 13:31] LABS: Glucose 1 Hour 125 mg/dL (74-100)
[2025-01-17 13:33] LABS: Eosinophils % 1 % (0-3); Lymphocytes % 16 % (10-50); Monocytes % 3 % (2-9); Neutrophils % 80 % (42-76); Total Cells Counted 100
[2025-01-17 13:34] LABS: Platelet Estimate Normal; RBC Morphology Normal
[2025-01-17 15:27] LABS: RPR W/RFX Titers Nonreactive (Nonreactive)
== END 2025-01-17 23:59 | disposition home or self-care (01) ==
PROVIDERS: Visit Provider Obstetrics & Gynecology
DX: Z34.02 Encounter for supervision of normal first pregnancy, second trimester (principal)
CPT/HCPCS: 36415; 82947; 85007; 85025; 85027; 86592

== ENCOUNTER 2025-01-19 23:01 | Outpatient (CLI) | payer OTHER, SELFPAY ==
[2025-01-19 23:28] VITALS: BMI 22.3
[2025-01-19 23:30] VITALS: BP 138/79; PULSE 107; RESP 18; TEMP 36.5; O2SAT 98; BMI 22.3
[2025-01-19 23:36] LABS: Microscopic, Urine URINE MICROSCOPIC (MICROSCOPIC)
[2025-01-19 23:37] LABS: Appearance,Urine CLEAR (Clear); Bilirubin,Urine Negative (Negative); Blood, Urine Negative (Negative); Color,Urine YELLOW (Yellow); Glucose,Urine (UA) Negative (Negative); Ketones,Urine Negative (Negative); Leukocyte Esterase,Urine Negative (Negative); Nitrate,Urine Negative (Negative); PH,Urine 6.5 (5.0-8.5); Protein,Urine Negative (Negative); Urobilinogen,Urine 0.2 EU/dl (0.2)
[2025-01-19 23:49] LABS: Bacteria,Urine 4+ /lpf
[2025-01-19 23:50] LABS: Barbiturates Screen,Urine Negative ng/ml (<200); Benzodiazepines Screen,Urine Negative ng/ml (<200)
[2025-01-19 23:51] LABS: Amphetamine/Metha Screen,Urine Negative ng/ml (<1000)
[2025-01-19 23:52] LABS: Methadone Screen,Urine Negative ng/ml (<300)
[2025-01-19 23:53] LABS: Cannabinoid Screen,Urine Negative ng/ml (<50); Cocaine Screen,Urine Negative ng/ml (<300)
[2025-01-19 23:54] LABS: Opiate Screen,Urine Negative ng/ml (<300); Phencyclidine Screen,Urine Negative ng/ml (<25)
[2025-01-20 01:11] LABS: Fetal Fibronectin (Rapid) Negative (Negative)
--- NOTE | 2025-01-20 01:35 | EXP.PN ---
Subjective *Date: 01/20/25 *Time: 01:35 Interval history: valentin presented with pelvic pressure and concerns secondary to a shortened cervix. Pt denies any vaginal bleeding, LOF or contractions. See nursing intake Exam Data for Last 24 hours Vital signs and Labs for Last 24 Hours: Laboratory Results - last 24 hr 01/19/25 23:15: Urine Color Yellow, Urine Appearance Clear, Urine pH 6.5, Ur Specific [place] 1.010, Urine Protein Negative, Urine Glucose (UA) Negative, Urine Ketones Negative, Urine Blood Negative, Urine Nitrate Negative, Urine Bilirubin Negative, Urine Urobilinogen 0.2, Ur Leukocyte Esterase Negative, Urine RBC 3-5, Urine WBC 10-20, Ur Squamous Epith Cells 10-20, Urine Bacteria 4+, Urine Opiates Screen Negative, Urine Methadone Screen Negative, Ur Barbituates Screen Negative, Ur Phencyclidine Scrn Negative, Ur Amphetamines Screen Negative, U Benzodiazepines Scrn Negative, Urine Cocaine Screen Negative, U Marijuana (THC) Screen Negative 01/20/25 00:23: Fibronectin Negative I & O for Last 24 hours: Intake & Output 01/17/25 01/18/25 01/19/25 01/20/25 23:59 23:59 23:59 23:59 Weight 160 lb Narrative: General: patient is alert oriented in no acute distress and responds appropriately to questions. Appears to be in minimal pain. Cardiovascular: RRR +S1/S2, no murmurs or rubs Pulmonary: Clear to auscultation bilaterally, nonlabored breathing, symmetric chest rise Abdominal: Gravid abdomen, nontender to palpation. No fundal tenderness or suprapubic tenderness. Extremities: no edema, no tenderness or cyanosis noted Skin: Normal turgor, intact, warm. Negative for erythema, pallor, petechia, or lesions Psychiatric: Normal affect, normal thought process, good judgment and insight, no depression or anxious mood appreciated. FHT: cat I tracing. []/moderate variability/ +accels/ -decels [place]: no contractions noted Assessment and Plan *Assessment and plan (1) Short cervix affecting : Status: Acute Category: Medical Code(s): O26.879 - Cervical shortening, unspecified trimester (2) Anxiety during : Status: Acute Category: Medical Code(s): O99.340 - Other mental disorders complicating , unspecified trimester; F41.9 - Anxiety disorder, unspecified (3) : Status: Acute Qualifiers: Weeks of gestation: 27 weeks Qualified Code(s): Z3A.27 - 27 weeks gestation of Category: Medical Code(s): Z34.90 - Encounter for supervision of normal , unspecified, unspecified trimester Plan FFN collected and negative. discussed the r/b of cervical exam to include a risk of bleeding and contractions. At this time the patient had been here for an hour and was not feeling pelvic pressure any longer and declined a cervical exam. Extensively reviewed the return precautions and the risk of cervical insufficiency Discussed the risks and benefits and given cervical length is less than 25mm started vaginal progesterone for cervical insufficiency. Pt understands follow up.
== END 2025-01-20 01:39 | disposition home or self-care (01) ==
LOC: OBOUT 23:02 → OB 23:03
PROVIDERS: PCP Family Medicine; Visit Provider Obstetrics & Gynecology
DX: O26.873 Cervical shortening, third trimester (principal); Z3A.28 28 weeks gestation of pregnancy; O99.340 Other mental disorders complicating pregnancy, unspecified trimester; F41.9 Anxiety disorder, unspecified
CPT/HCPCS: 80307; 81001; 82731; 87086; G0463

== ENCOUNTER 2025-01-25 10:32 | Outpatient (CLI) | payer OTHER, SELFPAY ==
--- NOTE | 2025-01-25 10:33 | US_ITS ---
PROCEDURE: US TRANSVAGINAL CLINICAL INDICATION: 2 week cervical length COMPARISON: US US OB <= 14 WEEKS FETUS from 08/17/2024 US US OB /MATERNAL DETAIL from 11/29/2024 US US OB >= 14 WEEKS FETUS from 12/27/2024 US US OB TRANSVAGINAL from 01/09/2025 US US OB TRANSVAGINAL from 01/11/2025 FINDINGS: Transvaginal transabdominal sonographic images of the cervix and uterus were obtained. From her established due date she is 29weeks 2days. The following parameters are obtained: Viable Fetus in the cephalic presentation with a posterior placenta grade 2. The cervix measures cm 1.56-1.96 cm transvaginally. There is a small amount of funneling at the internal os. Measurements: heart Rate = 155bpm Amniotic fluid index: 15.44cm, MVP 5.48 cm. No obvious anomalies evident.Kidneys, four-chamber heart, bladder, stomach, three-vessel cord appear normal. IMPRESSION: 1. Viable fetus in the cephalic presentation with a posterior placenta grade 2. 2. The fluid is within normal limits with an amniotic fluid index 15.44 cm, MVP 5.48 cm. 3. The cervix measures 1.56-1.96 cm transvaginally. There is a small amount of internal os funneling. 4. Limited anatomical scan appears normal. Dictated by: Juan Luis Castro MD 01/25/2025 13:58 Juan Luis Castro MD in [facility] 01/25/2025 13:58
--- NOTE | 2025-01-25 11:22 | US_ITS ---
PROCEDURE: US OB FOLLOW UP CLINICAL INDICATION: SGA-less than 10% percentile do SD Ratio COMPARISON: US US OB <= 14 WEEKS FETUS from 08/17/2024 US US OB /MATERNAL DETAIL from 11/29/2024 US US OB >= 14 WEEKS FETUS from 12/27/2024 US US OB TRANSVAGINAL from 01/09/2025 US US OB TRANSVAGINAL from 01/11/2025 US US TRANSVAGINAL from 01/25/2025 FINDINGS: Transabdominal sonographic images of the uterus were obtained. The following parameters are obtained: From her established due date she is 29weeks 2days Viable fetus in the cephalic presentation with a posterior lateral placenta grade 2. Average ultrasound age 29 weeks 5 days Estimated weight 1379 grams, 3 lb 1 oz heart rate: Normal on earlier ultrasound today BPD: 29weeks 6days, 52 percentile HC: 29weeks 6days, 30 percentile AC: 29weeks 2days, 40 percentile FL: 29weeks 4days, 40 percentile HC/AC: 1.09 FL/BPD: 0.76 FL/AC: 0.22 Growth percentile: 39 Amniotic fluid: Appears normal, RICHI was normal in her other ultrasound done today. No obvious anomalies evident. profile seen, stomach, bladder, kidneys, three-vessel cord, four chamber heart appear normal. IMPRESSION: 1. Viable fetus in the cephalic presentation with a posterolateral placenta grade 2. 2. The fluid is within normal limits from her earlier ultrasound done today. 3. There has been good interval growth with the fetus currently 39th percentile. 4. Limited anatomical scan appears normal. Dictated by: Juan Luis Castro MD 01/25/2025 14:02 Juan Luis Castro MD in [facility] 01/25/2025 14:02
== END 2025-01-25 23:59 | disposition home or self-care (01) ==
LOC: RAD 10:33
PROVIDERS: Visit Provider Obstetrics & Gynecology
DX: O26.873 Cervical shortening, third trimester (principal); O09.293 Supervision of pregnancy with other poor reproductive or obstetric history, third trimester; O36.5930 Maternal care for other known or suspected poor fetal growth, third trimester, not applicable or unspecified; Z3A.29 29 weeks gestation of pregnancy
CPT/HCPCS: 76816; 76830